=== PATIENT | male | born 1980 | race Two or more races ===

== ENCOUNTER 2019-11-07 09:59 | Emergency (ER) | payer BC ==
[2019-11-07] MEDS ORDERED: Lidocaine 1% with EPINEPHrine 1:100,000 20 ML MDV INJECT ONE (10:34)
[2019-11-07] MEDS ORDERED: Diphtheria,Pertussis(Acell),Tetanus Vaccine 0.5 ML Syringe IM ONE (10:35)
--- NOTE | 2019-11-07 10:39 | EDM.PDOC ---
ED HPI GENERAL MEDICAL PROBLEM - General Chief Complaint: Upper Extremity Injury/Pain Stated Complaint: LT ARM LAC Time Seen by Provider: 11/07/19 10:21 Source of Information: Reports: Patient History Limitations: Reports: No Limitations - History of Present Illness INITIAL COMMENTS - FREE TEXT/NARRATIVE: The patient presents with a laceration to the left forearm. He has a 6.5cm laceration to the left mid forearm. A garage door spring let loose and hit him in the forearm. He is right handed. His tetanus is not up to date. He has no other injuries. Onset: Sudden Duration: Minutes: Location: Reports: Upper Extremity, Left (forearm) Quality: Reports: Sharp Severity: Mild Improves with: Reports: Immobilization Worsens with: Reports: Movement Context: Reports: Trauma (Hit by a garage door sprin) Associated Symptoms: Reports: No Other Symptoms Left Arm Pain Score (Numeric/FACES): 4 - Related Data Allergies Allergy/AdvReac Type Severity Reaction Status Date / Time amoxicillin Allergy Hives Verified 11/07/19 10:21 Home Meds: Home Meds metFORMIN HCl [Metformin HCl] 1,000 mg PO BID 11/07/19 [History] Past Medical History Cardiovascular History: Reports: High Cholesterol Musculoskeletal History: Reports: Back Pain, Chronic, Fracture Neurological History: Reports: Head Trauma Endocrine/Metabolic History: Reports: Diabetes, Type II, Obesity/BMI 30+ Hematologic History: Reports: Blood Transfusion(s) - Infectious Disease History Infectious Disease History: Reports: Chicken Pox - Past Surgical History Musculoskeletal Surgical History: Reports: Other (See Below) Other Musculoskeletal Surgeries/Procedures:: hand, back surgery--herniated disk. Social & Family History - Tobacco Use Smoking Status *Q: Never Smoker Second Hand Smoke Exposure: No - Caffeine Use Caffeine Use: Reports: Coffee - Recreational Drug Use Recreational Drug Use: No Review of Systems - Review of Systems Review Of Systems: See Below Constitutional: Reports: No Symptoms Eyes: Reports: No Symptoms Ears: Reports: No Symptoms Nose: Reports: No Symptoms Mouth/Throat: Reports: No Symptoms Respiratory: Reports: No Symptoms Cardiovascular: Reports: No Symptoms GI/Abdominal: Reports: No Symptoms Genitourinary: Reports: No Symptoms Musculoskeletal: Reports: Other (6.5cm laceration to the left forearm) ED EXAM, GENERAL - Physical Exam Exam: See Below Exam Limited By: No Limitations General Appearance: Alert, No Apparent Distress Ears: Normal External Exam Nose: Normal Inspection Head: Atraumatic, Normocephalic Neck: Normal Inspection Respiratory/Chest: No Respiratory Distress Extremities: Other (6.5cm laceration to the left forearm. Good sensation and pulses distally and he can move his wrist and forearm.) ED TRAUMA EXTREMITY PROCEDURES - Laceration/Wound Repair Left Arm Lac/Wound Length In cm: 6.5 Appearance: Subcutaneous, Irregular, Mildly Contaminated Distal NVT: Neuro & Vascular Intact, No Tendon Injury Anesthetic Type: Local Local Anesthesia - Lidocaine (Xylocaine): 1% with EPI Skin Prep: Saline Exploration/Debridement/Repair: Wound Explored, In a Bloodless Field, Explored to Base Closed With: Sutures Suture Size: 3-0 # of Sutures: 9 Suture Type: Nylon, Interrupted, Simple Tetanus Status Addressed: Yes Complications: No Course - Vital Signs Last Recorded V/S: Last Vital Signs Temp 96.8 F L 11/07/19 10:15 Pulse 90 11/07/19 10:15 Resp 18 11/07/19 10:15 BP 151/96 H 11/07/19 10:15 Pulse Ox 93 L 11/07/19 10:15 - Orders/Labs/Meds Orders: Active Orders 24 hr Category Date Time Status Vaccines to be Administered [RC] PER UNIT ROUTINE Care 11/07/19 10:35 Active Meds: Medications Discontinued Medications Generic Name Dose Route Start Last Admin Trade Name Freq PRN Reason Stop Dose Admin Diphtheria/Tetanus/Acell Pertussis 0.5 ml 11/07/19 10:35 11/07/19 10:47 Adacel IM 11/07/19 10:36 0.5 ml .ONCE ONE Administration Lidocaine/Epinephrine 20 ml 11/07/19 10:34 11/07/19 10:42 Xylocaine 1% With Epinephrine 1:100,000 INJECT 11/07/19 10:35 20 ml ONETIME ONE Administration - Re-Assessments/Exams Free Text/Narrative Re-Assessment/Exam: 11/07/19 11:14 I was able to close the wound with 9 sutures. Departure - Departure Time of Disposition: 11:15 Disposition: Home, Self-Care 01 Condition: Good Clinical Impression: Laceration of left forearm Qualifiers: Encounter type: initial encounter Qualified Code(s): S51.812A - Laceration without foreign body of left forearm, initial encounter - Discharge Information *PRESCRIPTION DRUG MONITORING PROGRAM REVIEWED*: Not Applicable *COPY OF PRESCRIPTION DRUG MONITORING REPORT IN PATIENT HALIE: Not Applicable Referrals: Chanel Ceron NP [Primary Care Provider] - Forms: ED Department Discharge Additional Instructions: Clean the wound with warm soapy water 2 times per day and apply antibiotic ointment after. Have the sutures removed in 7 to 10 days. Look for any signs of infection such as redness, swelling, pain or drainage. If you see any of these signs please return, you may need oral antibiotics. Sepsis Event Note - Evaluation Sepsis Screening Result: No Definite Risk - Focused Exam Vital Signs: Vital Signs Temp Pulse Resp BP Pulse Ox 11/07/19 10:15 96.8 F L 90 18 151/96 H 93 L Date Exam was Performed: 11/07/19 Time Exam was Performed: 11:13 - My Orders Last 24 Hours: My Active Orders 11/07/19 10:35 Vaccines to be Administered [RC] PER UNIT ROUTINE - Assessment/Plan Last 24 Hours: My Active Orders 11/07/19 10:35 Vaccines to be Administered [RC] PER UNIT ROUTINE
== END 2019-11-07 11:37 | disposition home or self-care (01) ==
LOC: SUPCPDRO 09:59 → JD.ED 09:59
DX: S51.812A Laceration without foreign body of left forearm, initial encounter (principal); E11.9 Type 2 diabetes mellitus without complications; E66.9 Obesity, unspecified; Z68.38 Body mass index [BMI] 38.0-38.9, adult; Z23 Encounter for immunization; Z88.1 Allergy status to other antibiotic agents; Z79.84 Long term (current) use of oral hypoglycemic drugs; W22.8XXA Striking against or struck by other objects, initial encounter
CPT/HCPCS: 12002; 90471; 90715; 99282; 99282-25